=== PATIENT | male | born 1980 | race Caucasian/White ===

== ENCOUNTER 2018-09-08 10:07 | Emergency (ER) | payer OTHER, SELFPAY ==
--- NOTE | 2018-09-08 10:10 | RAD_ITS ---
STUDY: X-RAY CHEST REASON FOR EXAM: Male, 38 years old. Chest pain. TECHNIQUE: AP upright portable view. COMPARISON: None. FINDINGS: The lungs are clear and expanded. There is no demonstrated pleural abnormality. Normal size heart. Normal mediastinum and rosalind. Normal visualized pulmonary arteries. Normal visualized aortic arch and descending thoracic aorta. Normal visualized thoracic spine. Normal visualized ribs, clavicles, and shoulders. There is no demonstrated abnormality of the visualized soft tissue structures of the upper abdomen. RAD/Chest 1 View (Portable) IMPRESSION: Normal x-ray examination of the chest. Electronically Signed: Michele Pineda MD at 11:15 EST , Service support ,
--- NOTE | 2018-09-08 10:10 | EKG12_ITS ---
Test Reason : CP Blood Pressure : / mmHG Vent. Rate : 086 BPM Atrial Rate : 086 BPM P-R Int : 172 ms QRS Dur : 098 ms QT Int : 364 ms P-R-T Axes : 063 011 045 degrees QTc Int : 435 ms Normal sinus rhythm Normal ECG Confirmed by BARBARA MONSALVE MD ([id number]), restaurant expeditor RUDDY BOYD ([id number] on 09/10/2018 8:49:49 AM Referred By: MANUELITO Confirmed By:BARBARA MONSALVE MD
[2018-09-08 10:11] VITALS: BP 136/98; PULSE 85; RESP 16; TEMP 36.7; O2SAT 99; BMI 26.9
--- NOTE | 2018-09-08 10:13 | ED.VISSUMM ---
- ER Visit Summary Date of Service: 09/08/18 Chief Complaint: Chest pain History of Present Illness: The patient is a 38 M who has had left lower chest pain for the past 5 days. He states is been continuous however it does wax and wane. It sharp in the left chest area. He states it worse when breathing and laying on that side. Nothing makes it better. He denies shortness of breath, nausea, diaphoresis. He denies any injury. He has no cardiac risk factors. He takes no medications at home. Physical Examination: Vital signs reviewed. HEENT exam unremarkable. Heart is regular rate and rhythm without murmurs. Lungs are clear to auscultation. Abdomen is soft and nontender. Extremities reveal no edema. Peripheral pulses are equal. Skin exam normal. Neurologic exam normal. Test Results: EKG is sinus rhythm with a rate of 86. No ST changes. Laboratory studies are normal. D-dimer normal. Chest x-ray per my interpretation reveals no acute findings. Emergency Department Course and Treatment: Patient received aspirin. His ITZEL score is 0. This is likely chest wall pain. Patient will be treated with NSAIDs and he will follow-up with his PCP Treatment Plan: [] Disposition: Discharge Impression: Chest wall pain This note was generated with [employer] dictation software. It may contain incorrect words, spelling, and punctuation that were not noted in review of the chart prior to signing ED Disposition - Plan for ED Patient: Chief Complaint: Chest Pain Referrals: [facility] Doctor,Out of [NON-STAFF] -
[2018-09-08 10:21] VITALS: O2SAT 98
[2018-09-08] MEDS: Aspirin 81 MG TAB.CHEW 324 MG PO (10:21)
[2018-09-08 10:38] LABS: Absolute Lymphocyte Count 0.97 X10^3/ul (0.83-4.51); Absolute Neutrophil Count 3.2 X10^3/uL (2.0-7.7); Basophil# 0.02 X10^3/uL; Basophil% 0.4 % (0-1); Eosinophil# 0.05 X10^3/uL; Eosinophils% 1.1 % (0-5); Hematocrit 42.7 % (40-54); Hemoglobin 14.2 g/dl (13.0-16.5); Lymphocyte # 0.97 X10^3/ul (4.0); Lymphocyte % 20.8 % (19-41); Mean Corp Hgb Conc 33.3 g/gl (32-36); Mean Corpuscular Hgb 29.9 pg (27.0-32.0); Mean Corpuscular Volume 89.9 fL (80-94); Mean Platelet Vol. 10.2 fl (6.2-12.0); Monocyte% 8.6 % (0-10); Neutrophil # 3.21 X10^3/uL (2.7-7.7); Neutrophil % 68.9 % (47-70); Platelet Count 173 K/mm3 (150-450); RBC Distribution Width CV 12.5 % (11.6-14.6); Red Blood Count 4.75 M/mm3 (4.6-6.2); White Blood Count 4.7 K/mm3 (4.4-11.0)
[2018-09-08 10:39] LABS: POSITIVE COUNT NO; POSITIVE DIFFERENTIAL NO; POSITIVE MORPHOLOGY NO
[2018-09-08 10:48] LABS: D-Dimer Quantitative (DVT/PE) 0.49 FEU/ug/m (0.27-0.49)
[2018-09-08 10:51] LABS: Anion Gap 4 (5-15); BUN 11 mg/dL (7-18); BUN/Creat Ratio 11.3 RATIO (10-20); Chloride 105 mmol/L (98-107); Creatinine, Serum 0.98 mg/dL (0.70-1.30); EST Glomerular Filtration Rate 90 mL/min (>60); Est Glom Filt Rate - Afr Amer 109 mL/min (>60); Estimated Creatinine Clearance 106.72 ml/min; Glucose 106 mg/dL (74-106); Sodium Level 140 mmol/L (136-145)
--- NOTE | 2018-09-08 11:00 | ED.DEP ---
ED Disposition - Plan for ED Patient: Disposition: Home or Assisted Living Chief Complaint: Chest Pain Instructions: ED Chest Pain Noncardiac Ch Prescriptions: Naproxen [Naprosyn] 500 mg PO BID PRN #20 tab Referrals: [facility],Out of [NON-STAFF] -
[2018-09-08 11:04] VITALS: BP 149/76; PULSE 72; RESP 16; O2SAT 99
== END 2018-09-08 11:04 | disposition home or self-care (01) ==
PROVIDERS: Emergency Provider Emergency Medicine
DX: R07.89 Other chest pain (principal)
CPT/HCPCS: 71045; 80048; 84484; 85025; 85379; 93005; 99285; A4216